=== PATIENT | male | born 1975 | race Two or more races ===

== ENCOUNTER 2018-06-08 14:24 | Emergency (ER) | payer OTHER ==
[~2018-06-08] VITALS: Ht 180.3 cm; Wt 90.3 kg
[~2018-06-08 14:24] MED LIST: IMODIUM A-D2 MG PO; KETO10TA2 PO; LEVSIN/SL0.125 MG SL; LOPRESSOR25 MG PO; NORFLEX100MG PO; PEPCID40 MG PO; PHENERGAN25 MG PO; ZANTAC300 MG
== END 2018-06-08 17:23 | disposition home or self-care (01) ==
LOC: ER 14:24
DX: M54.2 Cervicalgia (principal)